=== PATIENT | female | born 1960 | race Hispanic/Latino ===

== ENCOUNTER → 2017-08-06 | Outpatient (CLI) | payer BC | END | disposition home or self-care (01) | LOC: RAH 07:54 | PROVIDERS: ATTEND Internal Medicine | DX: Z12.31 Encounter for screening mammogram for malignant neoplasm of breast (principal) | CPT/HCPCS: 77067 ==

== ENCOUNTER → 2018-11-30 | Outpatient (CLI) | payer BC | END | disposition home or self-care (01) | LOC: RAH 08:17 | PROVIDERS: ATTEND Family Medicine | DX: Z12.31 Encounter for screening mammogram for malignant neoplasm of breast (principal) | CPT/HCPCS: 77067 ==

== ENCOUNTER → 2020-03-13 | Outpatient (CLI) | payer BC | END | disposition home or self-care (01) | LOC: RAH 08:01 | PROVIDERS: ATTEND Internal Medicine | DX: Z12.31 Encounter for screening mammogram for malignant neoplasm of breast (principal) | CPT/HCPCS: 77067 ==

== ENCOUNTER → 2020-04-09 | Outpatient (CLI) | payer BC | END | disposition home or self-care (01) | LOC: RAH 10:00 | PROVIDERS: ATTEND Internal Medicine | DX: R92.8 Other abnormal and inconclusive findings on diagnostic imaging of breast (principal); R92.2 Inconclusive mammogram | CPT/HCPCS: 76641; 77065 ==

== ENCOUNTER → 2023-03-15 | Outpatient (CLI) | payer BC | END | disposition home or self-care (01) | LOC: RAH 08:14 | PROVIDERS: ATTEND Internal Medicine | DX: Z12.31 Encounter for screening mammogram for malignant neoplasm of breast (principal) | CPT/HCPCS: 77067 ==

== ENCOUNTER → 2024-04-06 | Outpatient (CLI) | payer BC | END | disposition home or self-care (01) | LOC: RAH 08:35 | PROVIDERS: ATTEND Nurse Practitioner | DX: Z12.31 Encounter for screening mammogram for malignant neoplasm of breast (principal); R92.30 Dense breasts, unspecified | CPT/HCPCS: 77067 ==